=== PATIENT | male | born 1970 | race African-American/Black ===

== ENCOUNTER 2018-10-02 12:46 | Emergency (ER) | payer OTHER ==
[~2018-10-02] VITALS: Ht 180.3 cm; Wt 92.1 kg
[2018-10-02 13:28] LABS: ABSOLUTE NEUTROPHILS 11.1 thou/uL (1.4-8.2); BASOPHILS 0.6 % (0.0-2.0); EOSINOPHILS 0.1 % (0.0-3.0); HEMATOCRIT 44.1 % (42.0-52.0); HEMOGLOBIN 14.4 gm/dL (14.0-18.0); LYMPHOCYTES 11.7 % (24.0-44.0); MCHC 32.7 g/dL (28.0-37.0); MCV 85.6 fL (80.0-100.0); MONOCYTES 7.4 % (1.0-8.0); PLATELET COUNT 271 thou/uL (150-400); POLYS 80.2 % (36.0-66.0); RBC 5.14 mil/uL (4.50-6.00); RDW 15.9 % (10.5-14.5); WBC 13.8 thou/uL (4.0-11.0)
[2018-10-02 13:35] LABS: ANION GAP 11 mmol/L (7-16); BUN 13 mg/dL (7-18); CALCIUM 8.9 mg/dL (8.5-10.1); CHLORIDE 106 mmol/L (98-107); CO2 24 mmol/L (21-32); CREATININE 1.1 mg/dL (0.7-1.3); GLUCOSE 87 mg/dL (74-106); POTASSIUM 4.2 mmol/L (3.5-5.1); SODIUM 141 mmol/L (136-145)
[2018-10-02 13:44] LABS: TROPONIN-I <0.06 ng/mL (<0.06)
[2018-10-02 16:00] VITALS: BP 132/98
--- NOTE | 2018-10-03 17:58 | EKG ---
[address] [address] ELECTROCARDIOGRAM REPORT Name: ULICESKAIA Room #: DEP Nilda#: [id number] ������������������ Admission: 10/02/18 ������������������ Attend Phys: Discharge: 10/02/18 ������������������ Date of : 74 Report #: [id number] ����������������������������������������������������������������� [id number] THIS REPORT FOR: //name// [facility] ED Test Date: 2018-10-02 Test Time: 12:55:16 Pat Name: KAIA ELENA Department: Room: Gender: M [employer]: KMD : 1970 Requested By: Nathanael Tarango Order Number: [id number] MD: Triston Monsalve Measurements Intervals [place] Rate: 88 P: 55 [place]: 169 QRS: 34 QRSD: 89 T: 44 QT: 348 QTc: 421 Interpretive Statements Sinus rhythm Probable left atrial enlargement Probable left ventricular hypertrophy No previous ECG available for comparison Electronically Signed On 10-03-2018 17:57:42 CDT by Triston Monsalve [email or web address] ��������������������������������������������� <ELECTRONICALLY SIGNED> ���������������������������������������� By: Triston Monsalve MD ��������������������������������������������� 10/03/18 1757 [id number] MD LEI Xiao
== END 2018-10-02 16:10 | disposition home or self-care (01) ==
LOC: ER 12:46
PROVIDERS: Emergency Medicine
DX: F45.42 Pain disorder with related psychological factors (principal); R07.89 Other chest pain; I10 Essential (primary) hypertension; E78.00 Pure hypercholesterolemia, unspecified; F17.210 Nicotine dependence, cigarettes, uncomplicated; Z88.5 Allergy status to narcotic agent; Z88.8 Allergy status to other drugs, medicaments and biological substances